=== PATIENT | male | born 1940 | race African-American/Black ===

== ENCOUNTER 2018-07-11 11:56 | Observation (INO) ==
[2018-07-11] MEDS ORDERED: NITROGLYCERIN 2% OINT 1 INCH/GM PACK TOP STA (12:33)
[2018-07-11] MEDS ORDERED: ALUM/MAG/SIMETH/LIDO VISC 1:1 30 ML BOTTLE PO STA (12:33)
[2018-07-11] MEDS ORDERED: ASPIRIN 325 MG TABLET PO STA (12:33)
[2018-07-11 12:40] LABS: Basophils % 0.6 % (0.0-0.8); Eosinophils # 0.2 10*3/uL (0.0-0.87); Eosinophils % 2.1 % (0.00-10.9); Hematocrit 43.5 VOL% (42.0-52.0); Hemoglobin 14.1 GM/DL (14.0-18.0); Immature Granulocytes % 0.3 %; Immature Granulocytes Absolute 0.02 #; Lymphocytes # 2.2 10*3/uL (1.4-4.0); Lymphocytes % 30.7 % (21.2-54.2); Mean Corpuscular HGB Conc 32.4 GM/DL (32-36); Mean Platelet Volume 10.7 FL (9.6-12.0); Monocytes % 13.5 % (1.7-12.7); Neutrophils % 52.8 % (38.7-73.9); Platelet Count 272 T/CUMM (130-400); Red Blood Count 4.89 MC/CUMM (3.8-5.5); Red Cell Distribution Width 14.4 % (9.3-17.3); White Blood Count 7.1 T/CUMM (4-12)
[2018-07-11 12:54] LABS: INR 0.9
[2018-07-11 12:59] LABS: Albumin 3.6 G/DL (3.4-5.0); Bilirubin,Total 0.5 MG/DL (0.2-1.0); Osmolality,Calculated 282.1 MOS/KG (273-304); Total Protein 7.6 G/DL (6.4-8.3)
[2018-07-11] MEDS ORDERED: ACETAMINOPHEN 325 MG TABLET PO PRN (14:55)
[2018-07-11] MEDS ORDERED: ONDANSETRON 4 MG/2 ML VIAL IV PRN (14:55)
[2018-07-11] MEDS ORDERED: LACTULOSE 20 GM/30 ML UDCUP PO PRN (14:55)
[2018-07-11] MEDS ORDERED: DOCUSATE SODIUM 100 MG CAPSULE PO PRN (14:55)
[2018-07-11] MEDS ORDERED: ENOXAPARIN 40 MG/0.4 ML SYRINGE SUBCUT SCH (15:00)
[2018-07-11] MEDS ORDERED: hydrALAZINE 20 MG/1 ML VIAL IV PRN (15:12)
[2018-07-11 15:42] LABS: Risk Ratio 3.05; Thyroid Stimulating Hormone 0.768 uIU/ml (0.358-3.74); VLDL CHOLESTEROL 16.6 MG/DL
[2018-07-11 16:25] LABS: Apearance,Urine CLEAR (Clear); Bilirubin,Urine Negative (Negative); Blood, Urine Negative (Negative); Glucose,Urine (UA) Negative (Negative); Ketones,Urine Negative (Negative); Nitrite,Urine Negative (Negative); Protein,Urine Negative; RBC,Urine 1 /HPF (0-4); Urine Color Straw (Yellow); Urine Specific Gravity 1.005 (1.001-1.035); Urine Urobilinogen < 2.0 EU/DL (0.2-1.0); WBC,Urine <1 /HPF (0-6)
[2018-07-11] MEDS ORDERED: ALUM/MAG/SIMETH/LIDO VISC 1:1 30 ML BOTTLE PO PRN (16:26)
[2018-07-11] MEDS: hydrALAZINE 25 MG TABLET PO SCH (20:34)
[2018-07-12 04:18] LABS: Basophils % 0.5 % (0.0-0.8); Eosinophils # 0.2 10*3/uL (0.0-0.87); Eosinophils % 2.5 % (0.00-10.9); Hematocrit 39.2 VOL% (42.0-52.0); Hemoglobin 12.8 GM/DL (14.0-18.0); Immature Granulocytes % 0.3 %; Immature Granulocytes Absolute 0.02 #; Lymphocytes # 1.9 10*3/uL (1.4-4.0); Lymphocytes % 31.1 % (21.2-54.2); Mean Corpuscular HGB Conc 32.7 GM/DL (32-36); Mean Corpuscular Volume 88.5 FL (87-102); Mean Platelet Volume 11.1 FL (9.6-12.0); Monocytes % 13.3 % (1.7-12.7); Neutrophils % 52.3 % (38.7-73.9); Platelet Count 250 T/CUMM (130-400); Red Blood Count 4.43 MC/CUMM (3.8-5.5); Red Cell Distribution Width 14.4 % (9.3-17.3)
[2018-07-12 04:53] LABS: Calcium 8.4 MG/DL (8.5-10.1); Osmolality,Calculated 287.8 MOS/KG (273-304)
[2018-07-12 04:54] LABS: Calcium 8.6 MG/DL (8.5-10.1); Osmolality,Calculated 289.7 MOS/KG (273-304)
[2018-07-12] MEDS ORDERED: POTASSIUM CHLORIDE 20 MEQ TABLET PO ONE (08:00)
[2018-07-12] MEDS ORDERED: REGADENOSON 0.4 MG/5 ML SYRINGE IV ONE (08:26)
[2018-07-12] MEDS ORDERED: amLODIPine 5 MG TABLET PO SCH (09:00)
[2018-07-12] MEDS: hydrALAZINE 25 MG TABLET PO SCH ×2 (10:19→21:08)
[2018-07-12] MEDS: MULTIVITAMIN (CENTRUM) TABLET PO SCH (10:19)
[2018-07-12] MEDS: ASPIRIN EC 81 MG TABLET PO SCH (10:19)
[2018-07-12] MEDS: POTASSIUM CHLORIDE 10 MEQ TABLET PO SCH (10:19)
[2018-07-12] MEDS: PANTOPRAZOLE 40 MG VIAL IV SCH (10:20)
[2018-07-12] MEDS: amLODIPine 10 MG TABLET PO SCH (10:20)
[2018-07-12] MEDS ORDERED: MAGNESIUM SULF RIDER 2 GM in PREMIX 1 EACH IV PRN (13:02)
[2018-07-12] MEDS ORDERED: POTASSIUM CHLORIDE RIDER 10 MEQ in PREMIX 1 EACH IV PRN (13:02)
[2018-07-12] MEDS ORDERED: SODIUM CHLORIDE 0.45% 1,000 ML IV SCH (13:30)
[2018-07-12] MEDS ORDERED: DIAZEPAM 5 MG TABLET PO ONE (14:00)
[2018-07-12] MEDS ORDERED: diphenhydrAMINE CAP 25 MG CAPSULE PO ONE (14:00)
[2018-07-12] MEDS ORDERED: fentaNYL 100 MCG/2 ML VIAL ONE (14:15)
[2018-07-12] MEDS ORDERED: NITROGLYCERIN DRIP 50 MG/250 ML BOTTLE IV ONE (14:15)
[2018-07-12] MEDS ORDERED: MIDAZOLAM 2 MG/2 ML VIAL ONE (14:15)
[2018-07-12] MEDS ORDERED: LIDOCAINE 1% 20 ML VIAL ONE (14:15)
[2018-07-12] MEDS ORDERED: VERAPAMIL 5 MG/2 ML VIAL ONE (14:15)
[2018-07-12] MEDS ORDERED: ENOXAPARIN 60 MG/0.6 ML SYRINGE ONE (14:31)
[2018-07-12] MEDS ORDERED: TIROFIBAN 5,000 MCG/100 ML PREMIX IV ONE (14:42)
[2018-07-12] MEDS ORDERED: TIROFIBAN 5,000 MCG/100 ML PREMIX IV SCH (14:54)
[2018-07-12] MEDS ORDERED: TICAGRELOR 90 MG TABLET ONE (15:19)
[2018-07-12] MEDS ORDERED: hydrALAZINE 20 MG/1 ML VIAL ONE (15:28)
[2018-07-12] MEDS ORDERED: cloNIDine 0.1 MG TABLET ONE (15:28)
[2018-07-12] MEDS ORDERED: ZALEPLON 5 MG CAPSULE PO PRN (15:29)
[2018-07-12] MEDS ORDERED: NITROGLYCERIN SL 0.4 MG TABLET SL PRN (15:29)
[2018-07-12] MEDS ORDERED: ACETAMINOPHEN 325 MG TABLET PO PRN (20:10)
[2018-07-12] MEDS ORDERED: ATORVASTATIN 40 MG TABLET PO SCH (21:00)
[2018-07-12] MEDS: CARVEDILOL 6.25 MG TABLET PO SCH (21:08)
[2018-07-12] MEDS: TICAGRELOR 90 MG TABLET PO SCH (21:08)
[2018-07-13 05:09] LABS: Basophils % 0.5 % (0.0-0.8); Eosinophils # 0.2 10*3/uL (0.0-0.87); Eosinophils % 2.6 % (0.00-10.9); Hematocrit 38.2 VOL% (42.0-52.0); Hemoglobin 12.4 GM/DL (14.0-18.0); Immature Granulocytes % 0.3 %; Immature Granulocytes Absolute 0.02 #; Lymphocytes # 1.9 10*3/uL (1.4-4.0); Lymphocytes % 25.7 % (21.2-54.2); Mean Corpuscular HGB Conc 32.5 GM/DL (32-36); Mean Platelet Volume 11.4 FL (9.6-12.0); Neutrophils % 57.9 % (38.7-73.9); Platelet Count 244 T/CUMM (130-400); Red Blood Count 4.29 MC/CUMM (3.8-5.5); Red Cell Distribution Width 14.8 % (9.3-17.3); White Blood Count 7.4 T/CUMM (4-12)
[2018-07-13 05:20] LABS: Calcium 8.3 MG/DL (8.5-10.1); Osmolality,Calculated 286.8 MOS/KG (273-304)
[2018-07-13 05:55] LABS: CKMB % 5.8 %; Calcium 8.4 MG/DL (8.5-10.1); Osmolality,Calculated 286.8 MOS/KG (273-304)
[2018-07-13 05:57] LABS: Troponin I 2.59 NG/ML (0.00-0.045)
[2018-07-13] MEDS: MULTIVITAMIN (CENTRUM) TABLET PO SCH (09:12)
[2018-07-13] MEDS: hydrALAZINE 25 MG TABLET PO SCH (09:13)
[2018-07-13] MEDS: TICAGRELOR 90 MG TABLET PO SCH (09:13)
[2018-07-13] MEDS: CARVEDILOL 6.25 MG TABLET PO SCH (09:13)
[2018-07-13] MEDS: amLODIPine 10 MG TABLET PO SCH (09:13)
[2018-07-13] MEDS: POTASSIUM CHLORIDE 10 MEQ TABLET PO SCH (09:13)
[2018-07-13] MEDS: ASPIRIN EC 81 MG TABLET PO SCH (09:13)
[2018-07-13] MEDS: PANTOPRAZOLE 40 MG VIAL IV SCH (09:14)
[2018-07-13 12:14] VITALS: BP 158/87
== END 2018-07-13 12:46 | disposition home or self-care (01) ==
LOC: N.EDINP 11:56 → N.ED 11:56 → SUATTDRO 14:55 → N.EDINP 17:35 → N.2E 18:18 → N.TELEN 07-12 16:19
PROVIDERS: ADMIT Hospitalist; ATTEND Internal Medicine
PROC: CLCCHCL (ICD-10-PCS; 2018-07-12 16:15)

== ENCOUNTER 2020-08-09 08:42 | Inpatient (IN) ==
[2020-08-09 10:40] LABS: Basophils % 0.3 % (0.0-0.8); Eosinophils # 0.1 10*3/uL (0.0-0.87); Eosinophils % 0.8 % (0.00-10.9); Hemoglobin 11.9 GM/DL (14.0-18.0); Immature Granulocytes % 0.4 %; Immature Granulocytes Absolute 0.04 #; Lymphocytes # 1.4 10*3/uL (1.4-4.0); Mean Corpuscular HGB Conc 33.1 GM/DL (32-36); Mean Corpuscular Volume 84.7 FL (87-102); Mean Platelet Volume 11.1 FL (9.6-12.0); Monocytes % 10.2 % (1.7-12.7); Neutrophils % 76.3 % (38.7-73.9); Platelet Count 185 T/CUMM (130-400); Red Blood Count 4.25 MC/CUMM (3.8-5.5); Red Cell Distribution Width 15.8 % (9.3-17.3); White Blood Count 11.3 T/CUMM (4-12)
[2020-08-09 10:48] LABS: PT Patient Result 11.4 SECS (10.5-12.0); Partial Thromboplastin Time 30.2 SECS (23.9-33.8)
[2020-08-09 11:00] LABS: Albumin 3.5 G/DL (3.4-5.0); Bilirubin,Total 0.9 MG/DL (0.2-1.0); Calcium 8.8 MG/DL (8.5-10.1); Osmolality,Calculated 277.7 MOS/KG (273-304); Potassium 3.4 MMOL/L (3.5-5.1); Total Protein 7.3 G/DL (6.4-8.2)
[2020-08-09 11:34] LABS: Bilirubin,Urine Negative (Negative); Blood, Urine Negative (Negative); Glucose,Urine (UA) Negative (Negative); Hyaline Casts,Urine 7 /LPF (0-3); Ketones,Urine Negative (Negative); Mucus,Urine Few /LPF (Occasional); Nitrite,Urine Negative (Negative); Protein,Urine Negative; RBC,Urine 2 /HPF (0-4); Squamous Epithelial Cell,Urine Occasional /HPF (0-10); Urine Appearance CLEAR (Clear); Urine Color Amber (Yellow); Urine Specific Gravity 1.016 (1.001-1.035)
[2020-08-09 11:40] LABS: Barbiturates Screen,Urine Negative (Negative); Benzodiazepines Screen,Urine Positive (Negative); Cannabinoid Screen,Urine Negative (Negative); Opiate Screen,Urine Negative (Negative); Phencyclidine Screen,Urine Negative (Negative)
[2020-08-09] MEDS ORDERED: DEXTROSE 50% 25 GM/50 ML VIAL IV PRN (13:52)
[2020-08-09] MEDS ORDERED: GLUCAGON 1 MG VIAL IM PRN (13:52)
[2020-08-09] MEDS ORDERED: LABETALOL 20 MG/4 ML SYRINGE IV PRN (13:52)
[2020-08-09] MEDS ORDERED: ENOXAPARIN 40 MG/0.4 ML SYRINGE SUBCUT SCH (14:00)
[2020-08-09] MEDS ORDERED: NITROGLYCERIN SL 0.4 MG TABLET SL PRN (14:06)
[2020-08-09] MEDS ORDERED: POTASSIUM CHLORIDE 20 MEQ TABLET PO ONE (14:37)
[2020-08-09 15:26] LABS: Calcium 8.8 MG/DL (8.5-10.1); Osmolality,Calculated 281.3 MOS/KG (273-304); Potassium 3.4 MMOL/L (3.5-5.1); Risk Ratio 1.93; VLDL CHOLESTEROL 11.2 MG/DL
[2020-08-09] MEDS: SODIUM CHLORIDE 0.9% 1,000 ML IV SCH (16:49)
[2020-08-09] MEDS: GABAPENTIN 300 MG CAPSULE PO SCH ×2 (16:49→20:54)
[2020-08-09] MEDS: hydrALAZINE 25 MG TABLET PO SCH (20:54)
[2020-08-09] MEDS: ATORVASTATIN 40 MG TABLET PO SCH (20:54)
[2020-08-10 05:57] LABS: Basophils % 0.5 % (0.0-0.8); Eosinophils # 0.5 10*3/uL (0.0-0.87); Eosinophils % 5.9 % (0.00-10.9); Hematocrit 31.3 VOL% (42.0-52.0); Hemoglobin 10.1 GM/DL (14.0-18.0); Immature Granulocytes % 0.4 %; Immature Granulocytes Absolute 0.03 #; Lymphocytes # 1.7 10*3/uL (1.4-4.0); Lymphocytes % 20.3 % (21.2-54.2); Mean Corpuscular HGB Conc 32.3 GM/DL (32-36); Mean Corpuscular Volume 88.2 FL (87-102); Mean Platelet Volume 11.2 FL (9.6-12.0); Monocytes % 13.6 % (1.7-12.7); Neutrophils % 59.3 % (38.7-73.9); Platelet Count 194 T/CUMM (130-400); Red Blood Count 3.55 MC/CUMM (3.8-5.5); Red Cell Distribution Width 15.5 % (9.3-17.3); White Blood Count 8.4 T/CUMM (4-12)
[2020-08-10 06:11] LABS: Calcium 8.5 MG/DL (8.5-10.1); Potassium 3.6 MMOL/L (3.5-5.1)
[2020-08-10] MEDS: ASPIRIN EC 81 MG TABLET PO SCH (08:09)
[2020-08-10] MEDS: GABAPENTIN 300 MG CAPSULE PO SCH ×3 (08:10→20:22)
[2020-08-10] MEDS: CLOPIDOGREL 75 MG TABLET PO SCH (08:11)
[2020-08-10] MEDS: PANTOPRAZOLE 40 MG TABLET PO SCH (08:11)
[2020-08-10] MEDS: hydrALAZINE 25 MG TABLET PO SCH ×2 (12:30→20:22)
[2020-08-10] MEDS: amLODIPine 10 MG TABLET PO SCH (12:41)
[2020-08-10] MEDS: ATORVASTATIN 40 MG TABLET PO SCH (20:22)
[2020-08-10] MEDS: SODIUM CHLORIDE 0.9% 1,000 ML IV SCH (23:05)
[2020-08-11] MEDS: GABAPENTIN 300 MG CAPSULE PO SCH ×2 (09:55→15:19)
[2020-08-11] MEDS: PANTOPRAZOLE 40 MG TABLET PO SCH (09:55)
[2020-08-11] MEDS: ASPIRIN EC 81 MG TABLET PO SCH (09:55)
[2020-08-11] MEDS: CLOPIDOGREL 75 MG TABLET PO SCH (09:55)
[2020-08-11] MEDS: amLODIPine 10 MG TABLET PO SCH (09:56)
[2020-08-11] MEDS: hydrALAZINE 25 MG TABLET PO SCH (09:56)
[2020-08-11 12:49] VITALS: BP 157/80
== END 2020-08-11 16:45 | disposition home or self-care (01) | DRG 552 ==
LOC: N.ED 08:42 → N.EDINP 14:33 → SUATTDRO 14:33 → N.EDINP 17:27 → N.3E 17:35
PROVIDERS: ADMIT Family Medicine; ATTEND Hospitalist

== ENCOUNTER 2021-08-23 03:05 | Inpatient (IN) ==
[2021-08-23] MEDS ORDERED: THIAMINE INJ 100 MG, FOLIC ACID INJ 1 MG, MAGNESIUM SULF INJ 2 GM, MULTIVITAMIN INJ 10 ... IV ONE (03:30)
[2021-08-23 03:48] LABS: Basophils # 0.1 10*3/uL (0.0-0.2); Basophils % 0.4 % (0.0-0.8); Eosinophils % 0.1 % (0.00-10.9); Hematocrit 37.4 VOL% (42.0-52.0); Hemoglobin 12.6 GM/DL (14.0-18.0); Immature Granulocytes % 0.6 %; Immature Granulocytes Absolute 0.12 #; Lymphocytes # 1.1 10*3/uL (1.4-4.0); Lymphocytes % 5.9 % (21.2-54.2); Mean Corpuscular HGB Conc 33.7 GM/DL (32-36); Mean Corpuscular Volume 86.4 FL (87-102); Mean Platelet Volume 10.7 FL (9.6-12.0); Monocytes # 1.7 10*3/uL (0.11-0.8); Monocytes % 9.2 % (1.7-12.7); Neutrophils % 83.8 % (38.7-73.9); Platelet Count 220 T/CUMM (130-400); Red Blood Count 4.33 MC/CUMM (3.8-5.5); Red Cell Distribution Width 14.5 % (9.3-17.3)
[2021-08-23 04:15] LABS: Bacteria,Urine Occasional /HPF (Few); Hyaline Casts,Urine 1 /LPF (0-3); Mucus,Urine Occasional /LPF (Occasional); RBC,Urine 1 /HPF (0-4); Squamous Epithelial Cell,Urine Occasional /HPF (0-10)
[2021-08-23 04:16] LABS: Bilirubin,Urine Small mg/dL (Negative); Blood, Urine Large mg/dL (Negative); Glucose,Urine (UA) Negative (Negative); Ketones,Urine Negative (Negative); Nitrite,Urine Negative (Negative); Protein,Urine 100 mg/dL (Negative); Urine Appearance Clear (Clear); Urine Color Yellow (Yellow); Urine Specific Gravity > 1.030 (1.001-1.035); Urine pH 5.5 (4.5-8.0)
[2021-08-23 04:20] LABS: Lymphocytes 11 % (20-55)
[2021-08-23] MEDS ORDERED: cefTRIAXone 1,000 MG in SODIUM CHLORIDE 0.9% 100 ML IV STA (04:20)
[2021-08-23 04:21] LABS: Platelet Estimate Adequate; Total Cells Counted 100
[2021-08-23 04:35] LABS: Barbiturates Screen,Urine Negative (Negative); Benzodiazepines Screen,Urine Negative (Negative); Cannabinoid Screen,Urine Negative (Negative); Opiate Screen,Urine Negative (Negative); Phencyclidine Screen,Urine Negative (Negative)
[2021-08-23 04:46] LABS: Alanine Aminotransferase 20 U/L (16-61); Albumin 3.1 G/DL (3.4-5.0); Alkaline Phosphatase 122 U/L (45-117); Aspartate Amino Transferase 43 U/L (0-37); Blood Urea Nitrogen 20 MG/DL (7-18); CKMB % 0.75 %; Calcium 8.6 MG/DL (8.5-10.1); Carbon Dioxide 26 MMOL/L (21-32); Chloride 103 MMOL/L (98-107); Glucose 140 MG/DL (74-106); Osmolality,Calculated 277.8 MOS/KG (273-304); Potassium 3.3 MMOL/L (3.5-5.1); Sodium 137 MMOL/L (136-145); Total Protein 7.1 G/DL (6.4-8.2)
[2021-08-23] MEDS ORDERED: POTASSIUM CHLORIDE 20 MEQ TABLET PO STA (04:54)
[2021-08-23] MEDS ORDERED: SODIUM CHLORIDE 0.9% 1,000 ML IV STA (05:10)
[2021-08-23] MEDS ORDERED: ONDANSETRON 4 MG/2 ML VIAL IV PRN (05:41)
[2021-08-23] MEDS ORDERED: GLUCAGON 1 MG VIAL IM PRN (05:41)
[2021-08-23] MEDS ORDERED: POTASSIUM CHLORIDE 20 MEQ TABLET PO PRN (05:49)
[2021-08-23] MEDS ORDERED: POTASSIUM CHLORIDE RIDER 10 MEQ/100 ML PREMIX IV PRN (05:49)
[2021-08-23] MEDS ORDERED: MAGNESIUM SULF RIDER 4 GM/100 ML PREMIX IV PRN (05:49)
[2021-08-23] MEDS ORDERED: MAGNESIUM SULF RIDER 2 GM/50 ML PREMIX IV PRN (05:49)
[2021-08-23] MEDS ORDERED: NITROGLYCERIN SL 0.4 MG TABLET SL PRN (05:50)
[2021-08-23] MEDS ORDERED: DEXTROSE 50% 25 GM/50 ML SYRINGE IV PRN (06:02)
[2021-08-23] MEDS: SODIUM CHLORIDE 0.9% 1,000 ML IV SCH ×2 (07:07→14:45)
[2021-08-23 07:52] LABS: Basophils % 0.2 % (0.0-0.8); Hematocrit 35.6 VOL% (42.0-52.0); Hemoglobin 11.6 GM/DL (14.0-18.0); Immature Granulocytes % 1.1 %; Immature Granulocytes Absolute 0.22 #; Lymphocytes # 1.5 10*3/uL (1.4-4.0); Lymphocytes % 7.3 % (21.2-54.2); Mean Corpuscular HGB Conc 32.6 GM/DL (32-36); Mean Corpuscular Volume 88.3 FL (87-102); Mean Platelet Volume 10.9 FL (9.6-12.0); Monocytes % 9.6 % (1.7-12.7); Neutrophils % 81.8 % (38.7-73.9); Platelet Count 204 T/CUMM (130-400); Red Blood Count 4.03 MC/CUMM (3.8-5.5); Red Cell Distribution Width 14.6 % (9.3-17.3); White Blood Count 20.5 T/CUMM (4-12)
[2021-08-23 08:16] LABS: Calcium 8.7 MG/DL (8.5-10.1); Osmolality,Calculated 282.4 MOS/KG (273-304); Potassium 3.3 MMOL/L (3.5-5.1)
[2021-08-23 08:34] LABS: Anisocytosis 1+; Band Neutrophils 2 % (0-10); Lymphocytes 9 % (20-55); Macrocytosis Slight; Myelocytes 1 %; Platelet Estimate Normal; Total Cells Counted 100
[2021-08-23] MEDS ORDERED: hydroCHLOROthiazide 25 MG TABLET PO SCH (09:00)
[2021-08-23] MEDS: CLOPIDOGREL 75 MG TABLET PO SCH (12:30)
[2021-08-23] MEDS: MULTIVITAMIN (CENTRUM) TABLET PO SCH (12:30)
[2021-08-23] MEDS: PANTOPRAZOLE 40 MG TABLET PO SCH (12:30)
[2021-08-23] MEDS: hydrALAZINE 25 MG TABLET PO SCH ×3 (12:30→21:24)
[2021-08-23] MEDS: carvediloL 6.25 MG TABLET PO SCH ×2 (12:30→21:24)
[2021-08-23] MEDS: DOCUSATE SODIUM 100 MG CAPSULE PO SCH ×2 (12:30→21:23)
[2021-08-23] MEDS: ENOXAPARIN 40 MG/0.4 ML SYRINGE SUBCUT SCH (13:08)
[2021-08-23 14:16] LABS: High Sensitive Troponin I* 33.9 ng/L (0-78)
[2021-08-23 14:17] LABS: CKMB % 0.69 %
[2021-08-23] MEDS: GABAPENTIN 300 MG CAPSULE PO SCH (21:23)
[2021-08-24] MEDS: SODIUM CHLORIDE 0.9% 1,000 ML IV SCH ×4 (02:01→21:30)
[2021-08-24 05:14] LABS: Basophils % 0.4 % (0.0-0.8); Eosinophils # 0.2 10*3/uL (0.0-0.87); Eosinophils % 1.7 % (0.00-10.9); Hematocrit 34.6 VOL% (42.0-52.0); Hemoglobin 11.2 GM/DL (14.0-18.0); Immature Granulocytes % 0.4 %; Immature Granulocytes Absolute 0.04 #; Lymphocytes # 1.6 10*3/uL (1.4-4.0); Lymphocytes % 13.9 % (21.2-54.2); Mean Corpuscular HGB Conc 32.4 GM/DL (32-36); Mean Corpuscular Volume 88.9 FL (87-102); Mean Platelet Volume 11.6 FL (9.6-12.0); Monocytes # 1.2 10*3/uL (0.11-0.8); Monocytes % 10.7 % (1.7-12.7); Neutrophils % 72.9 % (38.7-73.9); Platelet Count 217 T/CUMM (130-400); Red Blood Count 3.89 MC/CUMM (3.8-5.5); Red Cell Distribution Width 14.8 % (9.3-17.3); White Blood Count 11.2 T/CUMM (4-12)
[2021-08-24 05:52] LABS: Alanine Aminotransferase 105 U/L (16-61); Albumin 2.4 G/DL (3.4-5.0); Alkaline Phosphatase 109 U/L (45-117); Aspartate Amino Transferase 335 U/L (0-37); Bilirubin,Total < 0.39 MG/DL (0.20-1.00); Blood Urea Nitrogen 18 MG/DL (7-18); CKMB % 0.23 %; Calcium 8.6 MG/DL (8.5-10.1); Carbon Dioxide 24 MMOL/L (21-32); Chloride 111 MMOL/L (98-107); Glucose 115 MG/DL (74-106); Osmolality,Calculated 281.4 MOS/KG (273-304); Potassium 3.5 MMOL/L (3.5-5.1); Sodium 140 MMOL/L (136-145); Total Protein 6.5 G/DL (6.4-8.2)
[2021-08-24] MEDS: DOCUSATE SODIUM 100 MG CAPSULE PO SCH ×2 (09:26→21:51)
[2021-08-24] MEDS: PANTOPRAZOLE 40 MG TABLET PO SCH (09:26)
[2021-08-24] MEDS: MULTIVITAMIN (CENTRUM) TABLET PO SCH (09:26)
[2021-08-24] MEDS: carvediloL 6.25 MG TABLET PO SCH ×2 (09:26→21:51)
[2021-08-24] MEDS: hydrALAZINE 25 MG TABLET PO SCH ×3 (09:26→21:51)
[2021-08-24] MEDS: CLOPIDOGREL 75 MG TABLET PO SCH (09:26)
[2021-08-24] MEDS: ENOXAPARIN 40 MG/0.4 ML SYRINGE SUBCUT SCH (09:27)
[2021-08-24] MEDS: cefTRIAXone 1,000 MG in SODIUM CHLORIDE 0.9% 100 ML IV SCH (16:56)
[2021-08-24] MEDS: ACETAMINOPHEN 325 MG TABLET PO PRN (17:48)
[2021-08-24] MEDS: GABAPENTIN 300 MG CAPSULE PO SCH (21:51)
[2021-08-25] MEDS: SODIUM CHLORIDE 0.9% 1,000 ML IV SCH ×3 (04:39→22:52)
[2021-08-25] MEDS: ACETAMINOPHEN 325 MG TABLET PO PRN ×2 (04:42→20:30)
[2021-08-25 06:04] LABS: Basophils # 0.1 10*3/uL (0.0-0.2); Eosinophils # 0.2 10*3/uL (0.0-0.87); Eosinophils % 2.8 % (0.00-10.9); Hematocrit 36.6 VOL% (42.0-52.0); Hemoglobin 11.7 GM/DL (14.0-18.0); Immature Granulocytes % 0.7 %; Immature Granulocytes Absolute 0.04 #; Lymphocytes # 1.5 10*3/uL (1.4-4.0); Mean Corpuscular Volume 89.5 FL (87-102); Mean Platelet Volume 11.3 FL (9.6-12.0); Monocytes % 17.1 % (1.7-12.7); Neutrophils % 53.4 % (38.7-73.9); Platelet Count 244 T/CUMM (130-400); Red Blood Count 4.09 MC/CUMM (3.8-5.5); Red Cell Distribution Width 14.6 % (9.3-17.3); White Blood Count 5.8 T/CUMM (4-12)
[2021-08-25 06:29] LABS: Eosinophils 5 % (0-10); Lymphocytes 17 % (20-55); Platelet Estimate Adequate; Total Cells Counted 100
[2021-08-25 06:48] LABS: Calcium 8.4 MG/DL (8.5-10.1); Potassium 3.7 MMOL/L (3.5-5.1)
[2021-08-25 08:26] LABS: Hepatitis B Core IgM Quant 0.28 Index; Hepatitis B Surface Ag Quant < 0.10 Index; Hepatitis B Surface Ag Result Non-Reactive (NonReactive); Hepatitis C Virus Ab Quant 0.06 Index; Hepatitis C Virus Ab Result Non-Reactive (NonReactive)
[2021-08-25] MEDS: hydrALAZINE 25 MG TABLET PO SCH ×3 (09:48→20:29)
[2021-08-25] MEDS: CLOPIDOGREL 75 MG TABLET PO SCH (09:48)
[2021-08-25] MEDS: carvediloL 6.25 MG TABLET PO SCH ×2 (09:48→20:29)
[2021-08-25] MEDS: PANTOPRAZOLE 40 MG TABLET PO SCH (09:48)
[2021-08-25] MEDS: DOCUSATE SODIUM 100 MG CAPSULE PO SCH ×2 (09:48→20:29)
[2021-08-25] MEDS: MULTIVITAMIN (CENTRUM) TABLET PO SCH (09:48)
[2021-08-25] MEDS: ENOXAPARIN 40 MG/0.4 ML SYRINGE SUBCUT SCH (09:48)
[2021-08-25] MEDS: cefTRIAXone 1,000 MG in SODIUM CHLORIDE 0.9% 100 ML IV SCH (15:43)
[2021-08-25] MEDS: GABAPENTIN 300 MG CAPSULE PO SCH (20:29)
[2021-08-25] MEDS: ALBUTEROL/IPRATROPIUM 3 ML NEB RESP TX SCH (23:30)
[2021-08-26] MEDS: ALBUTEROL/IPRATROPIUM 3 ML NEB RESP TX SCH ×3 (03:25→11:15)
[2021-08-26] MEDS: DOCUSATE SODIUM 100 MG CAPSULE PO SCH (08:47)
[2021-08-26] MEDS: PANTOPRAZOLE 40 MG TABLET PO SCH (08:47)
[2021-08-26] MEDS: MULTIVITAMIN (CENTRUM) TABLET PO SCH (08:47)
[2021-08-26] MEDS: carvediloL 6.25 MG TABLET PO SCH (08:48)
[2021-08-26] MEDS: SODIUM CHLORIDE 0.9% 1,000 ML IV SCH ×2 (08:48→14:37)
[2021-08-26] MEDS: CLOPIDOGREL 75 MG TABLET PO SCH (08:48)
[2021-08-26] MEDS: ENOXAPARIN 40 MG/0.4 ML SYRINGE SUBCUT SCH (08:48)
[2021-08-26 09:41] LABS: Calcium 9.1 MG/DL (8.5-10.1); Potassium 3.6 MMOL/L (3.5-5.1)
[2021-08-26] MEDS ORDERED: MAGNESIUM SULF RIDER 2 GM/50 ML PREMIX IV ONE (09:46)
[2021-08-26 12:09] VITALS: BP 166/82
[2021-08-27] MEDS ORDERED: ISOSORBIDE MONONITRATE 30 MG TABLET PO SCH (09:00)
== END 2021-08-26 14:24 | disposition home health service (06) | DRG 558 ==
LOC: EDUNIT# → SUATTDRO → EDBD → N.ED 03:05 → N.EDINP 03:05 → SUATTDRO 05:41 → N.5E 07:56
PROVIDERS: ADMIT Internal Medicine; ATTEND Internal Medicine